=== PATIENT | female | born 1955 | race Caucasian/White ===

== ENCOUNTER 2016-08-29 11:37 | Emergency (ER) | payer MEDICAID ==
[~2016-08-29] VITALS: Ht 170.2 cm; Wt 45.6 kg
[~2016-08-29 11:37] MED LIST: ALBU18HF INH; MOME13HF INH
[2016-08-29] MEDS ORDERED: DIPH,PERTUSS(ACELL),TET VAC/PF 0.5 ML IM-VACC ONE ×2 (12:30→16:02)
[2016-08-29] MEDS ORDERED: SODIUM CHLORIDE 0.9% 1,000ML IVBOLUS ONE (12:30)
[2016-08-29] MEDS ORDERED: AMPICILLIN/SULBACTAM 3 GM in SODIUM CHLORIDE 0.9% 100 ML IVPB ONE (12:30)
[2016-08-29 13:17] LABS: BLOOD UREA NITROGEN 5 mg/dL (7-18)
[2016-08-29 16:15] VITALS: BP 146/82
== END 2016-08-29 16:52 | disposition home or self-care (01) ==
LOC: ED 16:46
DX: S60.811A Abrasion of right wrist, initial encounter (principal); L03.90 Cellulitis, unspecified; J44.9 Chronic obstructive pulmonary disease, unspecified; Z23 Encounter for immunization; W55.03XA Scratched by cat, initial encounter; Y93.89 Activity, other specified; Y99.8 Other external cause status; Y92.89 Other specified places as the place of occurrence of the external cause
CPT/HCPCS: 36415; 73130; 80048; 82040; 85025; 90471; 90715; 96365; 99285; J0295; J7030